=== PATIENT | female | born 1995 | race Caucasian/White ===

== ENCOUNTER 2024-03-06 12:02 | Emergency (ER) | payer OTHER ==
[2024-03-06 12:13] VITALS: BP 98/60; PULSE 85; RESP 20; TEMP 98.4; BMI 25.4
== END 2024-03-06 13:44 | disposition home or self-care (01) ==
LOC: JERFT 12:02
DX: J02.9 Acute pharyngitis, unspecified (principal)
CPT/HCPCS: 99283-25